=== PATIENT | male | born 1945 | race Caucasian/White ===

== ENCOUNTER 2016-10-15 09:39 | Emergency (ER) | payer OTHER ==
[~2016-10-15] VITALS: Ht 177.8 cm; Wt 75.7 kg
[~2016-10-15 09:39] MED LIST: ALPRAZOLAM1 MG PO; AMLODIPINE BESYL5 MG PO; ASPIR 8181 M1 PO; ATORVASTATIN CA10 MG PO; ATORVASTATIN CA80 MG PO; CARISOPRODOL350 MG PO; FLONASE ALLERG9.9 ML BOTH NARES; GABAPENTIN300 MG PO; IBUPROFEN400 MG PO; LISINOPRIL20 MG PO; LOPRESSOR25 MG PO; METFORMIN HCL500 MG PO; NORVASC10 MG PO; NORVASC5 MG PO; PERCOCET 5/31 TABLET PO; SINGULAIR10 MG PO; TEMAZEPAM30 MG PO; TRAMADOL HCL50 MG PO; VALIUM5 MG PO; XANAX1 MG PO; XARELTO1 EACH PO
[2016-10-15 10:08] LABS: CREATININE 1.2 mg/dL (0.6-1.3); POTASSIUM 3.8 mEq/L (3.7-5.4)
[2016-10-15 10:09] LABS: HEMATOCRIT 36.7 % (38.0-50.0); MCH 31.2 PG (29.0-34.0); MCV 94.6 FL (86-99); MEAN PLAT.VOLUME 10.9 uM^3 (9.0-12.4); PLATELET COUNT 176 K/uL (156-360); RBC DIS.WIDTH-SD 48.2 % (39-53); RED BLOOD COUNT 3.88 M/uL (4.00-5.50); WHITE BLOOD COUNT 6.4 K/uL (4.1-10.2)
[2016-10-15 10:20] LABS: CHLORIDE 110 mEq/L (99-109); POTASSIUM 3.9 mEq/L (3.7-5.4); SODIUM 140 mEq/L (136-147)
[2016-10-15 10:21] LABS: GLUCOSE 131 mg/dL (70-99)
[2016-10-15 10:23] LABS: ANION GAP 8 MEQ/L (2-14)
[2016-10-15 10:25] LABS: GFR ESTIMATE (CALCULATED) > 59 mL/min/
[2016-10-15 10:26] LABS: UREA NITROGEN (BUN) 17 mg/dL (9-23)
[2016-10-15 10:30] LABS: TROP-I INTERPRETATION NEGATIVE; TROPONIN-I < 0.01 ng/mL (0.0-0.30)
[2016-10-15 11:40] VITALS: BP 105/69
== END 2016-10-15 12:30 | disposition short-term general hospital (02) ==
LOC: EME → EDBD 09:39 → EME 09:39
PROVIDERS: Emergency Medicine
DX: I71.01 Dissection of thoracic aorta (principal); I10 Essential (primary) hypertension; K21.9 Gastro-esophageal reflux disease without esophagitis; F17.200 Nicotine dependence, unspecified, uncomplicated
CPT/HCPCS: 71010; 71275; 74175; 80047; 80048; 83880; 84484; 85027; 93005; 99281; 99285; J0461; J2270; J7030

== ENCOUNTER 2016-10-27 15:53 | Emergency (ER) | payer OTHER ==
[~2016-10-27] VITALS: Ht 177.8 cm; Wt 78.2 kg
[2016-10-27] MEDS ORDERED: HYDROMORPHONE HC2 MG PO (16:38)
[2016-10-27] MEDS ORDERED: ALPRAZOLAM1 MG PO (16:39)
[2016-10-27] MEDS ORDERED: DILAUDID2 MG PO (17:22)
[2016-10-27] MEDS ORDERED: XANAX1 MG PO (17:22)
[2016-10-27 18:35] VITALS: BP 104/78
== END 2016-10-27 18:42 | disposition home or self-care (01) ==
LOC: EME 15:53
DX: G89.18 Other acute postprocedural pain (principal); I10 Essential (primary) hypertension; Z98.890 Other specified postprocedural states; Z85.818 Personal history of malignant neoplasm of other sites of lip, oral cavity, and pharynx; Z72.0 Tobacco use
CPT/HCPCS: 93005; 99281; 99284; J1170

== ENCOUNTER 2016-10-28 23:12 | Observation (INO) | payer OTHER ==
[~2016-10-28] VITALS: Ht 177.8 cm; Wt 76.3 kg
[~2016-10-28 23:12] MED LIST changes: +DILAUDID2 MG PO; +HYDROMORPHONE HC2 MG PO
[2016-10-28 23:45] LABS: HEMATOCRIT 28.1 % (38.0-50.0); MCH 30.5 PG (29.0-34.0); MCHC 32.5 G/DL (30.0-36.0); MCV 93.9 FL (86-99); MEAN PLAT.VOLUME 10.1 uM^3 (9.0-12.4); PLATELET COUNT 508 K/uL (156-360); RBC DIS.WIDTH-SD 47.5 % (39-53); RED BLOOD COUNT 2.95 M/uL (4.00-5.50); WHITE BLOOD COUNT 9.6 K/uL (4.1-10.2)
[2016-10-28 23:46] LABS: CHLORIDE 107 mEq/L (99-109); POTASSIUM 3.9 mEq/L (3.7-5.4); SODIUM 142 mEq/L (136-147)
[2016-10-28 23:48] LABS: GLUCOSE 111 mg/dL (70-99)
[2016-10-28 23:50] LABS: ANION GAP 11 MEQ/L (2-14)
[2016-10-28 23:52] LABS: GFR ESTIMATE (CALCULATED) > 59 mL/min/
[2016-10-28 23:53] LABS: UREA NITROGEN (BUN) 19 mg/dL (9-23)
[2016-10-28 23:54] LABS: TROP-I INTERPRETATION NEGATIVE; TROPONIN-I 0.05 ng/mL (0.0-0.30)
[2016-10-29 06:10] LABS: TROP-I INTERPRETATION NEGATIVE; TROPONIN-I 0.04 ng/mL (0.0-0.30)
[2016-10-29 08:00] VITALS: BP 123/77
[2016-10-29] MEDS ORDERED: PROMETHAZINE12.5 M1 PO (08:04)
[2016-10-29] MEDS ORDERED: AMBIEN10 MG PO (08:05)
[2016-10-29] MEDS ORDERED: TRAMADOL HCL50 MG PO (08:05)
[2016-10-29] MEDS ORDERED: MONTELUKAST SOD10 MG PO (08:05)
[2016-10-29] MEDS ORDERED: ERGOCALCIF50000 UNIT PO (08:06)
[2016-10-29 08:24] VITALS: BP 120/74
[2016-10-29 11:22] VITALS: BP 114/70
[2016-10-29 12:12] LABS: TROP-I INTERPRETATION NEGATIVE; TROPONIN-I 0.03 ng/mL (0.0-0.30)
[2016-10-29 19:00] VITALS: BP 132/87
[2016-10-30 01:29] VITALS: BP 165/81
[2016-10-30 04:00] VITALS: BP 129/67
[2016-10-30 05:14] LABS: BASOPHIL COUNT 0.1 K/uL (0-0.1); EOSINOPHIL (%) 4.9 % (0-5); EOSINOPHIL COUNT 0.4 K/uL (0-0.3); IMMATURE GRANULOCYTE (%) 0.5 % (0.0-0.7); INSTRUMENT ABS NEUTROPHIL CT 4.4 K/uL; LYMPHOCYTE COUNT 2.1 K/uL (1.0-2.8); MCH 30.4 PG (29.0-34.0); MCHC 31.7 G/DL (30.0-36.0); MCV 95.8 FL (86-99); MEAN PLAT.VOLUME 10.3 uM^3 (9.0-12.4); MONOCYTE (%) 11.2 % (3-12); MONOCYTE COUNT 0.9 K/uL (0-0.8); NEUTROPHIL (%) 55.6 % (45-76); NEUTROPHIL COUNT 4.4 K/uL (1.8-6.4); PLATELET COUNT 530 K/uL (156-360); RBC DIS.WIDTH-CV 14.6 % (11.8-14.6); RBC DIS.WIDTH-SD 50.4 % (39-53); RED BLOOD COUNT 3.13 M/uL (4.00-5.50)
[2016-10-30 05:39] LABS: ANION GAP 8 MEQ/L (2-14); CHLORIDE 107 MEQ/L (99-109); GFR ESTIMATE (CALCULATED) > 59 mL/min/; GLUCOSE 97 mg/dL (70-99); SAMPLE HEMOLYSIS CHECK 0; SAMPLE ICTERIC CHECK 0; SAMPLE LIPEMIA CHECK 0; SODIUM 139 MEQ/L (136-147); UREA NITROGEN (BUN) 19 mg/dL (9-23)
[2016-10-30 08:35] VITALS: BP 126/76
[2016-10-30] MEDS ORDERED: MORPHINE SULFAT15 MG PO (11:59)
[2016-10-30 12:15] VITALS: BP 126/97
== END 2016-10-30 12:50 | disposition home or self-care (01) ==
LOC: EME 23:12 → EDOF 10-29 03:30 → 5WEST 10-29 03:30
PROVIDERS: Hospitalist; Internal Medicine
DX: R07.89 Other chest pain (principal); I10 Essential (primary) hypertension; J44.9 Chronic obstructive pulmonary disease, unspecified; G89.29 Other chronic pain; K21.9 Gastro-esophageal reflux disease without esophagitis; F32.9 Major depressive disorder, single episode, unspecified; F17.210 Nicotine dependence, cigarettes, uncomplicated; F43.10 Post-traumatic stress disorder, unspecified; Z85.819 Personal history of malignant neoplasm of unspecified site of lip, oral cavity, and pharynx; F41.9 Anxiety disorder, unspecified; D47.3 Essential (hemorrhagic) thrombocythemia; D64.9 Anemia, unspecified; Z86.711 Personal history of pulmonary embolism
CPT/HCPCS: 71020; 71275; 80048; 84484; 85025; 85027; 93005; 99281; 99285; G0378; J1170; J1650; J1885; J2270; J3010; J7050

== ENCOUNTER 2016-11-05 14:44 | Emergency (ER) | payer OTHER ==
[~2016-11-05 14:44] MED LIST changes: +AMBIEN10 MG PO; +ERGOCALCIF50000 UNIT PO; +MONTELUKAST SOD10 MG PO; +MORPHINE SULFAT15 MG PO; +PROMETHAZINE12.5 M1 PO
[2016-11-05 14:57] LABS: BASOPHIL COUNT 0.1 K/uL (0-0.1); EOSINOPHIL (%) 2.1 % (0-5); EOSINOPHIL COUNT 0.2 K/uL (0-0.3); HEMATOCRIT 35.4 % (38.0-50.0); IMMATURE GRANULOCYTE (%) 0.6 % (0.0-0.7); IMMATURE GRANULOCYTE COUNT 0.1 K/uL; INSTRUMENT ABS NEUTROPHIL CT 4.8 K/uL; LYMPHOCYTE COUNT 2.4 K/uL (1.0-2.8); MCH 29.9 PG (29.0-34.0); MCHC 31.1 G/DL (30.0-36.0); MCV 96.2 FL (86-99); MEAN PLAT.VOLUME 10.4 uM^3 (9.0-12.4); MONOCYTE (%) 11.7 % (3-12); NEUTROPHIL (%) 56.7 % (45-76); NEUTROPHIL COUNT 4.8 K/uL (1.8-6.4); PLATELET COUNT 440 K/uL (156-360); RBC DIS.WIDTH-CV 14.6 % (11.8-14.6); RBC DIS.WIDTH-SD 51.8 % (39-53); RED BLOOD COUNT 3.68 M/uL (4.00-5.50); WHITE BLOOD COUNT 8.5 K/uL (4.1-10.2)
[2016-11-05 15:08] LABS: AMYLASE 67 IU/L (1-118); CHLORIDE 112 mEq/L (99-109); POTASSIUM 4.2 mEq/L (3.7-5.4); SODIUM 142 mEq/L (136-147)
[2016-11-05 15:10] LABS: GLUCOSE 101 mg/dL (70-99)
[2016-11-05 15:11] LABS: ANION GAP 10 MEQ/L (2-14)
[2016-11-05 15:13] LABS: GFR ESTIMATE (CALCULATED) 58 mL/min/; SERUM ETHYL ALCOHOL < 10 mg/dL
[2016-11-05 15:14] LABS: UREA NITROGEN (BUN) 19 mg/dL (9-23)
[2016-11-05 15:16] LABS: LIPASE 27 U/L (1.0-51.0)
== END 2016-11-05 18:07 | disposition home or self-care (01) ==
LOC: TRA 14:44
PROVIDERS: Emergency Medicine
DX: S16.1XXA Strain of muscle, fascia and tendon at neck level, initial encounter (principal); S20.319A Abrasion of unspecified front wall of thorax, initial encounter; S00.81XA Abrasion of other part of head, initial encounter; V48.0XXA Car driver injured in noncollision transport accident in nontraffic accident, initial encounter
CPT/HCPCS: 70450; 71260; 72125; 74177; 80048; 81003; 82150; 83690; 85025; 86900; 86901; 93005; 99281; 99285; G0480; J3010

== ENCOUNTER 2016-12-31 05:07 | Emergency (ER) | payer OTHER ==
[~2016-12-31] VITALS: Ht 177.8 cm; Wt 72.7 kg
[2016-12-31 05:52] LABS: HEMATOCRIT 39.6 % (38.0-50.0); MCH 29.5 PG (29.0-34.0); MCHC 31.8 G/DL (30.0-36.0); MCV 92.7 FL (86-99); MEAN PLAT.VOLUME 11.3 uM^3 (9.0-12.4); PLATELET COUNT 196 K/uL (156-360); RBC DIS.WIDTH-CV 15.2 % (11.8-14.6); RBC DIS.WIDTH-SD 51.5 % (39-53); RED BLOOD COUNT 4.27 M/uL (4.00-5.50); WHITE BLOOD COUNT 10.5 K/uL (4.1-10.2)
[2016-12-31 06:03] LABS: CHLORIDE 109 mEq/L (99-109); POTASSIUM 4.6 mEq/L (3.7-5.4); SODIUM 141 mEq/L (136-147)
[2016-12-31 06:05] LABS: GLUCOSE 190 mg/dL (70-99)
[2016-12-31 06:06] LABS: ANION GAP 9 MEQ/L (2-14)
[2016-12-31 06:07] LABS: TOTAL BILIRUBIN 0.3 mg/dL (0.0-1.0)
[2016-12-31 06:08] LABS: ALKALINE PHOSPHATASE 104 IU/L (3-129)
[2016-12-31 06:09] LABS: GFR ESTIMATE (CALCULATED) > 59 mL/min/
[2016-12-31 06:10] LABS: UREA NITROGEN (BUN) 23 mg/dL (9-23)
[2016-12-31 06:12] LABS: LIPASE 27 U/L (1.0-51.0); TROP-I INTERPRETATION NEGATIVE; TROPONIN-I 0.02 ng/mL (0.0-0.30)
[2016-12-31 06:14] LABS: D-DIMER ELISA > 4.00 mg/L FEU (< 0.57)
[2016-12-31 07:22] LABS: ADD MIUA? YES; BILIRUBIN NEGATIVE; BLOOD NEGATIVE; COLOR YELLOW ((YELLOW)); GLUCOSE (STRIP) NEGATIVE; KETONES NEGATIVE; LEUKOCYTES NEGATIVE; NITRITE NEGATIVE; PROTEIN (STRIP) 100; UROBILINOGEN 0.2 MG/DL (0.2-1.0)
[2016-12-31 07:50] LABS: BACTERIA NONE SEEN /HPF; EPITHELIAL CELLS NONE SEEN /HPF; HYALINE CASTS 15-20 /LPF; MUCUS 2+ /LPF; RED BLOOD CELLS 0-5 /HPF (0-5); UCUL ADDED? NO; WHITE BLOOD CELLS 0-5 /HPF (0-5)
[2016-12-31 08:22] LABS: SPECIFIC GRAVITY 1.061 (1.000-1.030)
[2016-12-31 11:50] VITALS: BP 118/67
== END 2016-12-31 11:52 | disposition short-term general hospital (02) ==
LOC: EME → EDBD 05:07 → EME 05:07
PROVIDERS: Emergency Medicine
DX: I71.03 Dissection of thoracoabdominal aorta (principal); I10 Essential (primary) hypertension; F32.9 Major depressive disorder, single episode, unspecified; J44.9 Chronic obstructive pulmonary disease, unspecified; F17.200 Nicotine dependence, unspecified, uncomplicated; Z85.819 Personal history of malignant neoplasm of unspecified site of lip, oral cavity, and pharynx; Z95.1 Presence of aortocoronary bypass graft
CPT/HCPCS: 71020; 71275; 80053; 81003; 83690; 84484; 85027; 85379; 93005; 99281; 99285; J1170; J2060; J2270; J3010; J7030; J7050

== ENCOUNTER 2017-01-08 04:12 | Emergency (ER) | payer OTHER ==
[~2017-01-08] VITALS: Ht 177.8 cm; Wt 78.2 kg
[2017-01-08 05:37] LABS: CHLORIDE 102 mEq/L (99-109); POTASSIUM 4.1 mEq/L (3.7-5.4); SODIUM 139 mEq/L (136-147)
[2017-01-08 05:38] LABS: GLUCOSE 132 mg/dL (70-99)
[2017-01-08 05:40] LABS: ANION GAP 12 MEQ/L (2-14)
[2017-01-08 05:42] LABS: GFR ESTIMATE (CALCULATED) > 59 mL/min/
[2017-01-08 05:43] LABS: UREA NITROGEN (BUN) 21 mg/dL (9-23)
[2017-01-08 05:44] LABS: HEMATOCRIT 37.2 % (38.0-50.0); MCH 28.8 PG (29.0-34.0); MCHC 32.3 G/DL (30.0-36.0); MCV 89.4 FL (86-99); MEAN PLAT.VOLUME 11.3 uM^3 (9.0-12.4); PLATELET COUNT 273 K/uL (156-360); RBC DIS.WIDTH-CV 15.3 % (11.8-14.6); RBC DIS.WIDTH-SD 50.5 % (39-53); RED BLOOD COUNT 4.16 M/uL (4.00-5.50); WHITE BLOOD COUNT 9.5 K/uL (4.1-10.2)
[2017-01-08 05:52] LABS: TROP-I INTERPRETATION NEGATIVE; TROPONIN-I 0.04 ng/mL (0.0-0.30)
[2017-01-08 16:57] VITALS: BP 173/96
== END 2017-01-08 18:26 | disposition short-term general hospital (02) ==
LOC: EME 04:12
PROVIDERS: Emergency Medicine
DX: G89.18 Other acute postprocedural pain (principal); R07.9 Chest pain, unspecified; M54.9 Dorsalgia, unspecified; Z98.890 Other specified postprocedural states; I10 Essential (primary) hypertension; R00.0 Tachycardia, unspecified; R45.1 Restlessness and agitation; K57.30 Diverticulosis of large intestine without perforation or abscess without bleeding; F17.200 Nicotine dependence, unspecified, uncomplicated
CPT/HCPCS: 70450; 71275; 75635; 80048; 84484; 85027; 93005; 99281; 99285; J2060

== ENCOUNTER 2017-01-16 15:42 | Emergency (ER) | payer OTHER ==
[~2017-01-16] VITALS: Ht 177.8 cm; Wt 67.8 kg
[2017-01-16 15:55] VITALS: BP 98/56
[2017-01-16 16:37] LABS: HEMATOCRIT 33.3 % (38.0-50.0); MCH 29.3 PG (29.0-34.0); MCHC 32.4 G/DL (30.0-36.0); MCV 90.2 FL (86-99); MEAN PLAT.VOLUME 10.5 uM^3 (9.0-12.4); RBC DIS.WIDTH-CV 15.5 % (11.8-14.6); RBC DIS.WIDTH-SD 51.8 % (39-53); RED BLOOD COUNT 3.69 M/uL (4.00-5.50); WHITE BLOOD COUNT 7.8 K/uL (4.1-10.2)
[2017-01-16 16:41] LABS: PLATELET COUNT 591 K/uL (156-360)
[2017-01-16 16:47] LABS: CHLORIDE 108 mEq/L (99-109); POTASSIUM 3.7 mEq/L (3.7-5.4); SODIUM 140 mEq/L (136-147)
[2017-01-16 16:48] LABS: GLUCOSE 142 mg/dL (70-99)
[2017-01-16 16:50] LABS: ANION GAP 13 MEQ/L (2-14)
[2017-01-16 16:52] LABS: GFR ESTIMATE (CALCULATED) 58 mL/min/
[2017-01-16 16:53] LABS: UREA NITROGEN (BUN) 24 mg/dL (9-23)
== END 2017-01-16 17:52 | disposition left against medical advice (07) ==
LOC: EME 15:42
DX: I95.9 Hypotension, unspecified (principal); Z53.21 Procedure and treatment not carried out due to patient leaving prior to being seen by health care provider
CPT/HCPCS: 80048; 85027; 99281

== ENCOUNTER → 2017-01-21 | Emergency (ER) | payer OTHER ==
[~2017-01-21] VITALS: Ht 177.8 cm; Wt 69.2 kg
[2017-01-21 12:30] VITALS: BP 104/80
== END | disposition home or self-care (01) ==
LOC: EME 12:25
DX: G89.29 Other chronic pain (principal); M54.6 Pain in thoracic spine; Z86.79 Personal history of other diseases of the circulatory system
CPT/HCPCS: 93005; 99281; 99284; J3010

== ENCOUNTER 2017-07-15 00:24 | Emergency (ER) | payer OTHER ==
[~2017-07-15] VITALS: Ht 177.8 cm; Wt 78.2 kg
[2017-07-15 02:11] VITALS: BP 171/108
== END 2017-07-15 02:12 | disposition home or self-care (01) ==
LOC: EME 00:24
DX: R07.9 Chest pain, unspecified (principal); I10 Essential (primary) hypertension; F17.200 Nicotine dependence, unspecified, uncomplicated; K21.9 Gastro-esophageal reflux disease without esophagitis; J44.9 Chronic obstructive pulmonary disease, unspecified; Z86.79 Personal history of other diseases of the circulatory system; Z85.818 Personal history of malignant neoplasm of other sites of lip, oral cavity, and pharynx; F32.9 Major depressive disorder, single episode, unspecified; F41.9 Anxiety disorder, unspecified
CPT/HCPCS: 80048; 84484; 85025; 93005; 99281; 99284

== ENCOUNTER 2017-08-20 02:35 | Emergency (ER) | payer OTHER ==
[~2017-08-20] VITALS: Ht 177.8 cm; Wt 75.0 kg
[2017-08-20 03:08] LABS: HEMATOCRIT 42.2 % (38.0-50.0); HEMOGLOBIN 14.2 G/DL (12.5-16.6); MCH 31.1 PG (29.0-34.0); MCHC 33.6 G/DL (30.0-36.0); MCV 92.3 FL (86-99); PLATELET COUNT 237 K/uL (156-360); RBC DIS.WIDTH-CV 14.8 % (11.8-14.6); RBC DIS.WIDTH-SD 50.5 % (39-53); RED BLOOD COUNT 4.57 M/uL (4.00-5.50); WHITE BLOOD COUNT 8.2 K/uL (4.1-10.2)
[2017-08-20 03:17] LABS: CHLORIDE 109 mEq/L (99-109); POTASSIUM 3.5 mEq/L (3.7-5.4); SODIUM 143 mEq/L (136-147)
[2017-08-20 03:18] LABS: GLUCOSE 122 mg/dL (70-99)
[2017-08-20 03:22] LABS: CREATININE 1.2 mg/dL (0.6-1.3); GFR ESTIMATE (CALCULATED) > 59 mL/min/ (58.99-99999)
[2017-08-20 03:23] LABS: UREA NITROGEN (BUN) 20 mg/dL (9-23)
[2017-08-20 03:29] LABS: TROP-I INTERPRETATION NEGATIVE; TROPONIN-I 0.04 ng/mL (0.0-0.30)
[2017-08-20 03:44] VITALS: BP 92/61
== END 2017-08-20 03:43 | disposition left against medical advice (07) ==
LOC: EME 02:35
DX: R07.9 Chest pain, unspecified (principal); Z73.3 Stress, not elsewhere classified; Z53.21 Procedure and treatment not carried out due to patient leaving prior to being seen by health care provider
CPT/HCPCS: 71046; 80048; 84484; 85027; 93005

== ENCOUNTER 2017-11-20 19:27 | Emergency (ER) | payer OTHER ==
[~2017-11-20] VITALS: Ht 177.8 cm; Wt 76.0 kg
[2017-11-20 20:13] LABS: HEMATOCRIT 46.1 % (38.0-50.0); HEMOGLOBIN 15.7 G/DL (12.5-16.6); MCH 31.8 PG (29.0-34.0); MCHC 34.1 G/DL (30.0-36.0); MCV 93.5 FL (86-99); PLATELET COUNT 242 K/uL (156-360); RBC DIS.WIDTH-CV 13.7 % (11.8-14.6); RBC DIS.WIDTH-SD 47.5 % (39-53); RED BLOOD COUNT 4.93 M/uL (4.00-5.50); WHITE BLOOD COUNT 7.9 K/uL (4.1-10.2)
[2017-11-20 20:21] LABS: CHLORIDE 108 mEq/L (99-109); POTASSIUM 3.8 mEq/L (3.7-5.4); SODIUM 141 mEq/L (136-147)
[2017-11-20 20:23] LABS: GLUCOSE 113 mg/dL (70-99)
[2017-11-20 20:27] LABS: CREATININE 1.1 mg/dL (0.6-1.3); GFR ESTIMATE (CALCULATED) > 59 mL/min/ (58.99-99999)
[2017-11-20 20:28] LABS: UREA NITROGEN (BUN) 20 mg/dL (9-23)
[2017-11-20 20:35] LABS: TROP-I INTERPRETATION NEGATIVE; TROPONIN-I < 0.01 ng/mL (0.0-0.30)
[2017-11-20] MEDS ORDERED: ENALAPRIL MALEA20 MG PO (20:52)
[2017-11-21 00:19] VITALS: BP 140/86
== END 2017-11-21 00:23 | disposition home or self-care (01) ==
LOC: EME → EDBD 19:27 → EME 11-21 00:23
PROVIDERS: Emergency Medicine
DX: R07.9 Chest pain, unspecified (principal); G89.29 Other chronic pain; M54.5 Low back pain; J44.9 Chronic obstructive pulmonary disease, unspecified; I10 Essential (primary) hypertension; Z86.79 Personal history of other diseases of the circulatory system; F17.200 Nicotine dependence, unspecified, uncomplicated; Z85.818 Personal history of malignant neoplasm of other sites of lip, oral cavity, and pharynx; F32.9 Major depressive disorder, single episode, unspecified; F41.9 Anxiety disorder, unspecified; K21.9 Gastro-esophageal reflux disease without esophagitis
CPT/HCPCS: 70450; 71046; 80048; 84484; 85027; 93005; 99281; 99284; J3010

== ENCOUNTER 2018-02-10 20:07 | Emergency (ER) | payer OTHER ==
[~2018-02-10] VITALS: Ht 177.8 cm; Wt 82.4 kg
[~2018-02-10 20:07] MED LIST changes: +ENALAPRIL MALEA20 MG PO
[2018-02-10 20:14] VITALS: BP 153/92
== END 2018-02-10 21:03 | disposition left against medical advice (07) ==
LOC: EME → EDBD 20:07 → EME 21:03
DX: R07.9 Chest pain, unspecified (principal); Z53.21 Procedure and treatment not carried out due to patient leaving prior to being seen by health care provider
CPT/HCPCS: 93005

== ENCOUNTER 2018-02-20 23:20 | Emergency (ER) | payer OTHER ==
[~2018-02-20] VITALS: Ht 177.8 cm; Wt 78.7 kg
[2018-02-20 23:52] LABS: HEMATOCRIT 44.9 % (38.0-50.0); HEMOGLOBIN 14.8 G/DL (12.5-16.6); MCH 31.2 PG (29.0-34.0); MCV 94.7 FL (86-99); PLATELET COUNT 217 K/uL (156-360); RBC DIS.WIDTH-CV 14.1 % (11.8-14.6); RBC DIS.WIDTH-SD 49.4 % (39-53); RED BLOOD COUNT 4.74 M/uL (4.00-5.50); WHITE BLOOD COUNT 11.3 K/uL (4.1-10.2)
[2018-02-21 00:03] LABS: CHLORIDE 104 mEq/L (99-109); POTASSIUM 4.7 mEq/L (3.7-5.4); SODIUM 138 mEq/L (136-147)
[2018-02-21 00:05] LABS: GLUCOSE 106 mg/dL (70-99)
[2018-02-21 00:09] LABS: CREATININE 1.3 mg/dL (0.6-1.3); GFR ESTIMATE (CALCULATED) 58 mL/min/ (58.99-99999)
[2018-02-21 00:10] LABS: UREA NITROGEN (BUN) 16 mg/dL (9-23)
[2018-02-21 00:17] LABS: TROP-I INTERPRETATION NEGATIVE; TROPONIN-I < 0.01 ng/mL (0.0-0.30)
[2018-02-21 00:27] LABS: ALBUMIN 3.9 g/dL (3.2-4.8)
[2018-02-21 00:30] LABS: TOTAL PROTEIN 7.4 g/dL (6.4-8.3)
[2018-02-21 00:32] LABS: TOTAL BILIRUBIN 0.4 mg/dL (0.0-1.0)
[2018-02-21 00:33] LABS: ALKALINE PHOSPHATASE 132 IU/L (3-129)
[2018-02-21 00:35] LABS: AST (GOT) 26 IU/L (2-34); DIRECT BILIRUBIN 0.1 mg/dL (0.0-0.3)
[2018-02-21 00:36] LABS: ALT (GPT) 46 IU/L (3-49)
[2018-02-21 00:37] LABS: LIPASE 17 U/L (1.0-51.0)
[2018-02-21 03:31] LABS: PTT 25.1 SEC (25-37)
[2018-02-21 06:56] LABS: TROP-I INTERPRETATION NEGATIVE; TROPONIN-I 0.01 ng/mL (0.0-0.30)
[2018-02-21] MEDS ORDERED: PRILOSEC20 MG PO (07:10)
[2018-02-21] MEDS ORDERED: MAALOX ADVANCE1 EACH PO (07:10)
[2018-02-21] MEDS ORDERED: PERCOCET 5/31 TABLET PO (07:11)
[2018-02-21 07:25] VITALS: BP 116/75
== END 2018-02-21 07:51 | disposition left against medical advice (07) ==
LOC: EME → EDBD 23:20 → EME 23:20
PROVIDERS: Emergency Medicine
DX: K21.0 Gastro-esophageal reflux disease with esophagitis (principal); I49.3 Ventricular premature depolarization; I45.4 Nonspecific intraventricular block; R94.31 Abnormal electrocardiogram [ECG] [EKG]; K63.9 Disease of intestine, unspecified; I71.02 Dissection of abdominal aorta; I10 Essential (primary) hypertension; F41.9 Anxiety disorder, unspecified; F32.9 Major depressive disorder, single episode, unspecified; F17.200 Nicotine dependence, unspecified, uncomplicated; Z87.39 Personal history of other diseases of the musculoskeletal system and connective tissue; Z98.890 Other specified postprocedural states; Z90.49 Acquired absence of other specified parts of digestive tract; Z85.819 Personal history of malignant neoplasm of unspecified site of lip, oral cavity, and pharynx
CPT/HCPCS: 71046; 71275; 74174; 80048; 80076; 83605; 83690; 84484; 85027; 85610; 85730; 86850; 86900; 86901; 93005; 99281; 99285; C9113; J2270; J2405